=== PATIENT | female | born 1965 | race African-American/Black ===

== ENCOUNTER 2020-04-07 16:19 | Emergency (ER) | payer OTHER ==
[~2020-04-07] VITALS: Ht 162.6 cm; Wt 83.9 kg
[~2020-04-07 16:19] MED LIST: BENADRYL25 MG PO; CELEXA40 MG PO; DESYREL100 MG PO; VISTARIL 25 MG25 M1 PO
[2020-04-07 17:20] LABS: BE(vivo) -1.6 mmol/L (-2 to +3); HCO3 22.4 mmol/L (22.0-26.0); PCO2 35.6 mmHg (35.0-45.0); PO2 57.3 mmHg (80.0-100.0); pH 7.417 (7.360-7.450); sO2 90.5 % (92.0-98.0)
[2020-04-07 17:57] LABS: HEMATOCRIT 38.1 % (37.0-47.0); HEMOGLOBIN 12.8 gm/dL (12.0-15.0); MCH 31.2 pg (26.0-34.0); MCHC 33.6 g/dL (28.0-37.0); MCV 92.9 fL (80.0-100.0); PLATELET COUNT 239 thou/uL (150-400); RDW 13.8 % (10.5-14.5)
[2020-04-07 18:12] LABS: CALCIUM 8.9 mg/dL (8.5-10.1); CREATININE 1.2 mg/dL (0.6-1.0); POTASSIUM 3.9 mmol/L (3.5-5.1)
[2020-04-07 18:17] LABS: ALBUMIN 2.7 g/dL (3.4-5.0); DIRECT BILIRUBIN 0.3 mg/dL (<0.1-0.2); TOTAL BILIRUBIN 0.4 mg/dL (0.2-1.0); TOTAL PROTEIN 7.2 g/dL (6.4-8.2)
[2020-04-07 18:24] LABS: ABSOLUTE NEUTROPHILS 7.8 thou/uL (1.4-8.2)
[2020-04-07] MEDS ORDERED: ZPAK PO (20:57)
[2020-04-07 21:35] VITALS: BP 129/78
== END 2020-04-07 21:30 | disposition home or self-care (01) ==
LOC: ER 16:19
PROVIDERS: Emergency Medicine
DX: U07.1 COVID-19 (principal); R09.02 Hypoxemia; E87.2 Acidosis; I10 Essential (primary) hypertension; F17.210 Nicotine dependence, cigarettes, uncomplicated; Z79.899 Other long term (current) drug therapy; Z88.0 Allergy status to penicillin; Z88.8 Allergy status to other drugs, medicaments and biological substances; Z91.030 Bee allergy status

== ENCOUNTER 2020-08-25 18:24 | Emergency (ER) | payer OTHER ==
[~2020-08-25] VITALS: Ht 162.6 cm; Wt 105.7 kg
[~2020-08-25 18:24] MED LIST changes: +ZPAK PO
[2020-08-25] MEDS ORDERED: FLAGYL500 M1 PO (18:33)
[2020-08-25] MEDS ORDERED: ABILIFY20 MG PO (18:33)
[2020-08-25] MEDS ORDERED: FLEXERIL PO (18:33)
[2020-08-25] MEDS ORDERED: KLOR-CON 1010 MEQ PO (18:34)
[2020-08-25 18:35] VITALS: BP 142/82
== END 2020-08-25 18:39 ==
LOC: ER 18:24
DX: S60.812A Abrasion of left wrist, initial encounter (principal); T14.91XA Suicide attempt, initial encounter; I10 Essential (primary) hypertension; Z79.899 Other long term (current) drug therapy; Z88.0 Allergy status to penicillin; Z88.8 Allergy status to other drugs, medicaments and biological substances; Z91.030 Bee allergy status; X78.9XXA Intentional self-harm by unspecified sharp object, initial encounter; Y93.89 Activity, other specified; Y92.89 Other specified places as the place of occurrence of the external cause; Y99.8 Other external cause status

== ENCOUNTER 2020-12-06 08:27 | Emergency (ER) | payer OTHER ==
[~2020-12-06] VITALS: Ht 162.6 cm; Wt 105.7 kg
--- NOTE | ~2020-12-06 | EMS ---
[address] [address] EMS Patient Care Report Name: KORTNEY WORRELL Room #: REG NELA Greene#: [id number] Admission: 12/06/20 Attend Phys: Discharge: Date of : 63 Report #: [id number] THIS REPORT FOR: //name// Report Transmitted: 12/06/2020 08:54 EMS Care Summary [place], [place]/[facility] Incident [id number] @ 12/06/2020 07:[address] [address] [facility] Patient KORTNEY WORRELL Female, 55 Years 1965 Patient Address [address] [place], [place] [id number] Patient History Hypertension (HTN),Fibromyalgia,Gastro-Esophageal Reflux Disease (GERD),Anxiety,Post Traumatic Stress Disorder (PTSD), Chief Complaint L hip pain Disposition Transported No Lights/[place] Reason Traumatic Injury Transported To [facility] Narrative pt found seated on bedside, a&o, NAD. she states she slipped on a rug, getting out of the shower, and fell. pt c/o L hip pain. she was able to get herself up and walk to her room. staff wants pt eval at [facility]. pt denies LOC, states she hit her head "a little bit" but has no pain. pt seats self on cot. transport w/o incident. [address] [address] EMS Patient Care Report Name: KORTNEY WORRELL Room #: REG [facility]..#: [id number] Admission: 12/06/20 Attend Phys: Discharge: Date of : 63 Report #: [id number] Initial Vitals @08:13P: 83,R: 18,BP: 129/86,Pain: 8/10,GCS: 15,SpO2: 95,Revised Trauma: 12, Assessments @08:07MENTAL:No Abnormalities,SKIN:No Abnormalities,HEENT:LUNG SOUNDS:ABDOMEN:PELVIS//GI:Pelvis Other,EXTREMITIES:PULSE:Radial: 2+ Normal,NEURO: Impression Injury of Hip Procedures @08:07ALS AssessmentResponse: Unchanged@08:09StretcherResponse: Unchanged Timeline 07:54,Call Received 07:54,Dispatch Notified 07:56,Dispatched 07:57,En Route 08:03,On Scene 08:07,At Patient 08:07,ALS Assessment,Response: Unchanged 08:09,Stretcher,Response: Unchanged 08:13,BP: 129/86 M,PULSE: 83,RR: 18 R,SPO2: 95 Ox,ETCO2: ,BG: ,PAIN: 8,GCS: 15, 08:15,Depart Scene 08:23,At Destination 08:41,Call Closed Disclaimer v1.1 Copyright 2020 [employer] This EMS Care Summary contains data elements from the applicable legal record (which may be displayed differently). It is designed to provide pertinent information for the following purposes: continuity of care, clinical quality, and state data reporting. The complete legal record is available to ED staff and administrators of the receiving hospital in [facility]'s Patient Tracker. All data is provided "as is."
[~2020-12-06 08:27] MED LIST changes: +ABILIFY20 MG PO; +FLAGYL500 M1 PO; +FLEXERIL PO; +KLOR-CON 1010 MEQ PO
[2020-12-06 09:20] VITALS: BP 124/76
== END 2020-12-06 12:17 | disposition home or self-care (01) ==
LOC: ER 08:27
DX: S70.02XA Contusion of left hip, initial encounter (principal); M79.605 Pain in left leg; I10 Essential (primary) hypertension; F31.9 Bipolar disorder, unspecified; F41.1 Generalized anxiety disorder; Z79.899 Other long term (current) drug therapy; Z88.0 Allergy status to penicillin; Z91.030 Bee allergy status; W19.XXXA Unspecified fall, initial encounter; Y93.89 Activity, other specified; Y92.89 Other specified places as the place of occurrence of the external cause; Y99.8 Other external cause status

== ENCOUNTER 2021-03-01 17:29 | Inpatient (IN) | payer OTHER ==
[~2021-03-01] VITALS: Ht 167.6 cm; Wt 112.0 kg
--- NOTE | ~2021-03-01 | HC ---
[facility] [place] [address] CONSULTATION Name: KORTNEY WORRELL Room #: 463-P ADM IN M.R.#: [id number] Admission: 03/01/21 Attend Phys: Rasta Olguin Discharge: Date of : 63 Report #: [id number] THIS REPORT FOR: cc: Mason James MD, Dennis R MD Deardorff, Valerie A. MD ~ DATE OF SERVICE: 03/16/2021 REASON FOR CONSULTATION: Right ankle fracture. HISTORY OF PRESENT ILLNESS: The patient is a 55-year-old female who reportedly noted no specific injury to her right ankle, noticed it after she was out of restraints approximately four to five days ago, complains of right ankle pain. Denies any other significant extremity issues. PAST MEDICAL HISTORY: Significant for urinary tract issues per the patient, bipolar disorder, fibromyalgia, PTSD, generalized anxiety disorder, hepatitis C, diabetes type 2, hypertension, vitamin D deficiency. PAST SURGICAL HISTORY: She is unable to provide. SOCIAL HISTORY: She is at a prison. Ambulates without any assistive devices. Smokes. ALLERGIES: HALDOL, PENICILLIN, THORAZINE, CHLORPROMAZINE, FLUPHENAZINE. MEDICATIONS: Reported home medications include cyclobenzaprine, benztropine, buspirone, chlorpromazine, cyclobenzaprine, divalproex, famotidine, furosemide, lisinopril, melatonin, metformin, metoprolol, potassium chloride, albuterol, tramadol. REVIEW OF SYSTEMS: MUSCULOSKELETAL: She reports some mild left shoulder pain. NEUROLOGIC: She denies numbness or tingling. LABORATORY DATA: Laboratory studies done on 03/10/2021 show white blood cell count 13, hemoglobin 9.4, hematocrit 27.6, platelet count 385. Chemistry on 03/12/2021 is grossly normal. PHYSICAL EXAMINATION: GENERAL: The patient is awake, alert and oriented. She interacts appropriately. She converses well. She is a well-developed, well-nourished female in no acute distress. VITAL SIGNS: Most recent vital signs show temperature of 36.7, heart rate is 93, respiratory rate 18, blood pressure 135/78, pulse oximetry 96% on room air. EXTREMITIES: Examination of her right lower extremity, she has a moderately [facility] [address] [place] [address] CONSULTATION Name: KORTNEY WORRELL Room #: 463-[facility] IN M.R.#: [id number] Admission: 03/01/21 Attend Phys: Rasta Olguin Discharge: Date of : 63 Report #: [id number] edematous ankle and dorsal foot. She has brisk capillary refill. She minimally wiggles her toes. She has tenderness to palpation to the medial and lateral malleoli. No other foot tenderness. She does have some tenderness at her proximal leg. No other tenderness or pain with range of motion of the right lower extremity. Bilateral upper extremities are grossly neurovascularly intact with motor, sensory, and strength grossly intact. She moves them without significant difficulty. RADIOGRAPHS: AP, lateral and mortise view of the right ankle shows some chronic calcifications medially and laterally with an oblique distal fibula fracture with lateral translation of the talus. IMPRESSION AND PLAN: A 55-year-old female with right lateral malleolus fracture and translation of the talus laterally. Recommend nonweightbearing in a CAM walker and recommend she see my partner, Dr. Hao Khan this week in office at [facility] at the [facility] location, formally [facility] for most likely surgical discussion and surgical treatment. I will discuss this with the patient. I have discussed this with Dr. Khan. Thank you very much for allowing me to participate in the care of this patient. By: [phone] Leatha Rolon MD /nt
[2021-03-01 17:29] VITALS: BP 85/42
[2021-03-01 17:55] LABS: HEMATOCRIT 32.8 % (37.0-47.0); HEMOGLOBIN 10.7 gm/dL (12.0-15.0); MCH 31.4 pg (26.0-34.0); MCHC 32.6 g/dL (28.0-37.0); MCV 96.4 fL (80.0-100.0); PLATELET COUNT 161 thou/uL (150-400); RDW 14.8 % (10.5-14.5); WBC 15.2 thou/uL (4.0-11.0)
[2021-03-01 18:00] LABS: CALCIUM 9.3 mg/dL (8.5-10.1); CREATININE 3.3 mg/dL (0.6-1.0); POTASSIUM 4.9 mmol/L (3.5-5.1)
[2021-03-01 18:06] LABS: ALBUMIN 2.6 g/dL (3.4-5.0); APTT 34.8 Seconds (24.5-32.8); INR 1.13; PROTIME 12.2 Seconds (10.5-12.1); TOTAL BILIRUBIN 0.3 mg/dL (0.2-1.0); TOTAL PROTEIN 6.9 g/dL (6.4-8.2)
[2021-03-01] MEDS ORDERED: BENZTROPINE MES1 MG PO (18:26)
[2021-03-01] MEDS ORDERED: BUSPIRONE HCL10 MG PO ×2 (18:26)
[2021-03-01] MEDS ORDERED: FLEXERIL PO (18:27)
[2021-03-01] MEDS ORDERED: CHLORPROMAZINE50 M2 PO (18:27)
[2021-03-01] MEDS ORDERED: DEPAKOTE ER500 M1 PO (18:27)
[2021-03-01] MEDS ORDERED: DIVALPROEX SOD500 MG PO (18:28)
[2021-03-01] MEDS ORDERED: FUROSEMIDE 20 M20 MG PO (18:28)
[2021-03-01] MEDS ORDERED: ACID CONTROLLER20 MG PO (18:28)
[2021-03-01] MEDS ORDERED: LISINOPRIL10 MG PO (18:29)
[2021-03-01] MEDS ORDERED: FUROSEMIDE 40 M40 MG PO (18:29)
[2021-03-01] MEDS ORDERED: MELATONIN10 M3 PO (18:29)
[2021-03-01] MEDS ORDERED: MIRALAX17 G1 PO (18:30)
[2021-03-01] MEDS ORDERED: LOPRESSOR50 MG PO (18:30)
[2021-03-01] MEDS ORDERED: METFORMIN HCL500 M3 PO (18:30)
[2021-03-01] MEDS ORDERED: TRAMADOL 50 MG50 MG PO (18:31)
[2021-03-01] MEDS ORDERED: KLOR-CON M2020 MEQ PO (18:31)
[2021-03-01] MEDS ORDERED: PROAIR HFA8.5 GM INH (18:31)
[2021-03-01] MEDS ORDERED: STOOL SOFTENER100 M1 PO (18:33)
[2021-03-01] MEDS ORDERED: LIDOCAINE TOP (18:33)
[2021-03-01] MEDS ORDERED: TETRACAINE TOP (18:33)
[2021-03-01 18:54] LABS: ABSOLUTE NEUTROPHILS 8.5 thou/uL (1.4-8.2)
[2021-03-01 20:53] VITALS: BP 109/60
[2021-03-01 21:15] VITALS: BP 129/79
[2021-03-01 21:32] LABS: URINE BILIRUBIN NEGATIVE (Negative); URINE BLOOD 3+ (Negative); URINE CLARITY SL CLOUDY; URINE COLOR YELLOW; URINE GLUCOSE-RANDOM* NEGATIVE (Negative); URINE KETONES NEGATIVE (Negative); URINE LEUKOCYTES-REFLEX 3+ (Negative); URINE NITRITE-REFLEX NEGATIVE (Negative); URINE PROTEIN (DIPSTICK) NEGATIVE (Negative); URINE SPECIFIC GRAVITY 1.015 (1.005-1.035); URINE UROBILINOGEN 0.2 E.U./dl (0.2-1.0)
[2021-03-01 21:40] LABS: BACTERIA-REFLEX >30 Many /HPF (None Seen); CASTS None Seen /LPF (None Seen); SQUAMOUS 4-10 Moderate /LPF (0-3); URINE RBC >20 Many /HPF (NONE SEEN); URINE WBC-REFLEX >25 Many /HPF (0-5)
[2021-03-01 21:41] LABS: CRYSTALS None Seen /LPF (None Seen)
[2021-03-02] VITALS (17 sets, daily range): BP systolic 96–191; BP diastolic 45–112
--- NOTE | 2021-03-02 02:57 | NUR ---
PT ARRIVED FROM ER @2114. UNABLE TO COMPREHEND DUE TO MEDICAL HX. ADMISSION DONE BY PAPERWORK FROM [facility]. PT HAS BEEN RESTLESS, IMPULSIVE AND AGITATED UPON ARRIVAL. PAYROLL ACCOUNTING MANAGER MIGUEL AWARE AND STOPED BY TO SEE PT. IV ATIVAN, SL ZYPREXA GIVEN AND PT STILL RESTLESS. PT IS VERY WEAK AND UNABLE TO WALK. SCRATCHED RN AND OTHER MACHINE FEEDER FLOORPERSON WITH HER SHARP FINGER NAILS. PT TRYING TO GET OFF FROM BED, THIS NURSE INFORMED PT TO LAY BACK IN BED. PT STARTED TO KICK AND HIT AT STAFF. SECURITY CALLED. HOUSE SUP AWARE. IM GEODON GIVEN. WILL CONT TO MONITOR. BRIEF ON FOR INCONTINENCE. PT HAD A BM SMEARED ON BED. 4 SIDE RAILS UP FOR SAFETY. FALL PREC IN PLACE. PT ON TELE AND WILL CONT WITH POC.
[2021-03-02 05:43] LABS: HEMATOCRIT 30.3 % (37.0-47.0); MCH 32.4 pg (26.0-34.0); MCHC 33.1 g/dL (28.0-37.0); MCV 98.1 fL (80.0-100.0); RBC 3.09 mil/uL (4.20-5.00); RDW 14.9 % (10.5-14.5); WBC 16.1 thou/uL (4.0-11.0)
[2021-03-02 05:54] LABS: CALCIUM 8.5 mg/dL (8.5-10.1); POTASSIUM 5.4 mmol/L (3.5-5.1)
[2021-03-02 05:59] LABS: CREATININE 1.8 mg/dL (0.6-1.0)
--- NOTE | 2021-03-02 15:03 | NUR ---
1200 - Patient got out of bed on 0.5 precedex. She was mocking instructions and was not cooperating with this RN's directions to keep her safe. Patient attempted to pull at her lines and was not redirectable. Once out of the bed, the patient wanted to get back in the bed and was helped back. Precedex dose increased according to protocol and no further events have transpired as of the writing of this note.
--- NOTE | 2021-03-02 15:37 | EKG ---
[address] [place] [address] ELECTROCARDIOGRAM REPORT Name: KORTNEY WORRELL Room #: [facility]- ADM IN M.R.#: [id number] Admission: 03/01/21 Attend Phys: Darell Figueroa MD Discharge: Date of : 63 Report #: [id number] [facility] ED Test Date: 2021-03-01 Test Time: 17:37:12 Pat Name: KORTNEY WORRELL Department: Room: [facility] Gender: F Bag Presser: GINA : 1965 Requested By: Darell Figueroa Order Number: [id number] MD: Johnathon Williamson Measurements Intervals [place] Rate: 88 P: 39 AR: 156 QRS: -17 QRSD: 96 T: 52 QT: 380 QTc: 460 Interpretive Statements Sinus rhythm Inferior infarct, old Baseline wander in lead(s) V4,V6 No previous ECG available for comparison Electronically Signed On 03-02-2021 15:36:57 CDT by Johnathon Williamson [email or web address] <ELECTRONICALLY SIGNED> By: Johnathon Williamson MD, [facility] 03/02/21 1536 36 36 Johnathon Williamson MD, FAC /EPI
--- NOTE | 2021-03-02 16:42 | NUR ---
Chart review, discussed during los with hospitalist and spoke with romeo august. She lives [facility] the [facility]. Has legal guardian. Has assist with adl's and medication. Meals provided. Will cont following as needed for dc needs.
[2021-03-03] VITALS (24 sets, daily range): BP systolic 102–180; BP diastolic 64–97
--- NOTE | 2021-03-03 05:02 | NUR ---
Pt no progressing towards goal. Pt became very agitated, combative and managed to get out of bed. Five and two security personnel assisted pt back in bed safely. Precedex infusing continued and prn zyprexa given with partial relief. Increased bp treated (see chart), other vss stayed within normal limits. Pt is incontinent of urine and still refuses cole insertion.
[2021-03-03 05:42] LABS: HEMATOCRIT 31.1 % (37.0-47.0); HEMOGLOBIN 10.5 gm/dL (12.0-15.0); MCHC 33.9 g/dL (28.0-37.0); MCV 97.1 fL (80.0-100.0); RBC 3.2 mil/uL (4.20-5.00); RDW 14.9 % (10.5-14.5); WBC 13.3 thou/uL (4.0-11.0)
[2021-03-03 05:47] LABS: % SATURATION 19 % (20-39); IRON 36 ug/dL (50-170); TIBC 194 ug/dL (250-450)
--- NOTE | 2021-03-03 11:20 | NUR ---
Pt remains in the ICU. Case discussed with the care team. Shon consulted. Clinical updated faxed to Portillo STACY at [facility]. They are holding her bed.
[2021-03-03 12:59] LABS: CREATININE 1.1 mg/dL (0.6-1.0); MAGNESIUM 1.5 mg/dL (1.8-2.4); POTASSIUM 4.7 mmol/L (3.5-5.1)
--- NOTE | 2021-03-03 13:15 | NUR ---
DR. MOORE IN. FEW SIPS OF WATER EARLIER W/O PROBLEMS, B/4 ZYPREXA GIVEN.--VW
[2021-03-04] VITALS (24 sets, daily range): BP systolic 106–185; BP diastolic 54–160
--- NOTE | 2021-03-04 18:42 | NUR ---
PATIENT SLOWLY PROGRESSING EVIDENCED BY DECREASED AGGRESIVE BEHAVIOR.
[2021-03-05] VITALS (24 sets, daily range): BP systolic 123–169; BP diastolic 70–107
[2021-03-05 04:51] LABS: HEMATOCRIT 31.2 % (37.0-47.0); HEMOGLOBIN 10.4 gm/dL (12.0-15.0); MCH 31.8 pg (26.0-34.0); MCHC 33.4 g/dL (28.0-37.0); MCV 95.2 fL (80.0-100.0); RBC 3.27 mil/uL (4.20-5.00); WBC 12.6 thou/uL (4.0-11.0)
[2021-03-05 05:35] LABS: CALCIUM 8.5 mg/dL (8.5-10.1); CREATININE 0.9 mg/dL (0.6-1.0); MAGNESIUM 1.3 mg/dL (1.8-2.4); POTASSIUM 4.1 mmol/L (3.5-5.1)
--- NOTE | 2021-03-05 10:17 | NUR ---
WOKE PT EARLIER TO TAKE PILL,OFFER BREAKFAST. TOOK A FEW SIPS ONLY,TOOK MED W/O INCIDENT.NOT RESPONDING VERBALLY TO ?'S ASKED.--VW
--- NOTE | 2021-03-05 17:34 | NUR ---
Tenative plan for dc today. Sp with Huy at [facility] who reports they do not have staff to accept patient today. Faxed updated information. Huy reports can accept patient at 10;00 03/06/21. They plan wc van transport. Dr Gregory reports she sp with guardian who is agreeable to dc at any time to return to [facility]. Updated phys and RN.
[2021-03-06] VITALS (23 sets, daily range): BP systolic 121–173; BP diastolic 69–101
--- NOTE | 2021-03-06 06:20 | NUR ---
PT REMAINED IN RESTRAINTS OVERNIGHT. FOR THE MAJORITY OF SHIFT PT PLEASANT AND COOPERATIVE. PT COMPLAINED OF INCREASED ABDOMINAL PAIN SO OBTAINED A KUB. SEE RADIOLOGY REPORT FOR RESULTS.
[2021-03-06 08:41] LABS: HEMATOCRIT 30.6 % (37.0-47.0); HEMOGLOBIN 10.2 gm/dL (12.0-15.0); MCH 32.1 pg (26.0-34.0); MCHC 33.4 g/dL (28.0-37.0); MCV 96.2 fL (80.0-100.0); RBC 3.18 mil/uL (4.20-5.00); RDW 14.9 % (10.5-14.5); WBC 11.8 thou/uL (4.0-11.0)
[2021-03-06 08:57] LABS: CALCIUM 8.7 mg/dL (8.5-10.1); CREATININE 0.8 mg/dL (0.6-1.0); MAGNESIUM 1.6 mg/dL (1.8-2.4); POTASSIUM 3.6 mmol/L (3.5-5.1)
[2021-03-06] MEDS ORDERED: FLAGYL500 M1 PO (09:04)
[2021-03-06] MEDS ORDERED: LEVOFLOXACIN750 MG PO (09:04)
--- NOTE | 2021-03-06 10:19 | NUR ---
PT CALM AND COOPERATIVE THIS AM. PT COMPLAINING OF PAIN IN ABD REGION. PT SLEEPING SOUNDLY. RN TRIED CALLING SARANYA AT 1019. PEST CONTROLLER[TIONIST STATED THE NURSE WAS IN A MEETING RIGHT NOW AND TO CALL BACK IN 10-15 MINUTES. RN WILL CALL BACK THEN TO GIVE NURSE REPORT. PT RIDE WAS SCHEDULED FOR 1000, NO RIDE HAS SHOWN YET. PT HOLGUIN WAS REMOVED AT 1000. FACILITY STATED THEY WILL MONITOR HER URINE TRIALS FOR POST CATH URINATION.
--- NOTE | 2021-03-06 11:33 | NUR ---
DR MCMILLAN CAME TO SEE PATIENT BEFORE SHE WAS DISCHARGED. PT COMPLAINING OF ABD PAIN. DR MCMILLAN DC THE DISCHARGE ORDER AND ORDERED A CT AND SUPPOSITORY. RN GAVE SUPPOSITORY. PT HASNT HAD BOWEL MVMT FOR 2 DAYS. WILL CONTINUE TO MONITOR.
--- NOTE | 2021-03-06 12:28 | NUR ---
Tenative dc to [facility] today. Faxed ordrers sp with admissions, planned transport wc van for 10:00. Dr Figueroa met with patient this am. Cancelled dc. Patient with small ileus, and no BM for a few days. Left message with Sosa. Transport had already arrive and Rn sent away. [facility] IF dc over weekend. Call [facility] [phone]. Fax orders to [phone]. Chart is copiied. Request trasport from [facility]. If they cannot trasport call [facility] [phone]
[2021-03-07] VITALS (24 sets, daily range): BP systolic 89–161; BP diastolic 55–126
[2021-03-07 03:50] LABS: HEMOGLOBIN 9.4 gm/dL (12.0-15.0); MCH 31.7 pg (26.0-34.0); MCHC 33.6 g/dL (28.0-37.0); MCV 94.5 fL (80.0-100.0); RBC 2.96 mil/uL (4.20-5.00); RDW 15.2 % (10.5-14.5); WBC 11.4 thou/uL (4.0-11.0)
[2021-03-07 04:12] LABS: CALCIUM 8.8 mg/dL (8.5-10.1); CREATININE 0.9 mg/dL (0.6-1.0); MAGNESIUM 1.7 mg/dL (1.8-2.4)
--- NOTE | 2021-03-07 13:03 | NUR ---
PT MESSAGED DR AMEZQUITA ABOUT PT HR BEING IN THE 130S. PT LAYING IN BED, SOMEWHAT ANXIOUS AND HAVING A LOT OF PAIN. 9/10 ABD PAIN. PHARMACY STATED I CANNOT GIVE THE TORDOL D/T PT GETTING CONTRAST YESTERDAY AFTERNOON FOR CT. RN GAVE ATIVAN TO HELP CALM PT DOWN. WILL CONTINUE TO MONITOR.
--- NOTE | 2021-03-07 16:10 | NUR ---
RN TALKED TO DR AMEZQUITA VIA TELEPHONE ABOUT PT HR INCREASING TO 160 AROUND 1400 FOR SHORT PERIOD OF TIME. INTITALLY MESSAGED HIM FOR HR IN THE 130S. PT HR IN 140S WHEN CONTACTED THE SECOND TIME. ALIRIO STATED "SHE IS WITHDRAWLING FROM PRECEDEX" AND EXPLAINED HER HR WILL BE HIGH. GAVE PT PRN OLANZIPINE FOR ANXIETY AND ONE TIME DOSE OF MORPHINE FOR SEVERE ABD PAIN. PATIENT CAN RECEIVE PRN TORDOL FOR PAIN AROUND 1900 DUE TO CONTRAST GIVEN TO PATIENT YESTERDAY AFTERNOON. ALIRIO OK WITH TRANSFERING PATIENT STILL TO [facility] TELE UNIT.
[2021-03-08] VITALS (17 sets, daily range): BP systolic 125–167; BP diastolic 67–103
--- NOTE | 2021-03-08 08:22 | NUR ---
1939-SPOKE TO NICHOLE MELLO, OBTAINED ORDER FOR IVP LOPRESSOR x1. HR DROPPED FROM 140-150 TO LOW 100'S. BUT PT VERY RESTLESS AND IMPULSIVE, CLIMBING OUT OF BED AND HR QUICKLY BACK TO 130'S. 2199-OBTAINED ORDER FOR ONE TIME DOSE FENTANYL, PT C/O ABD PAIN, STILL VERY RESTLESS. PT HAD PULLED OUT IV, NEW LINE STARTED. 0000-LOW UOP, RESTLESS, DIFFICULT TO REORIENT. OBTAINED ORDER FOR RESTRAINTS AND IVF. PRN ZYPREXA, ATIVAN, AND TORADOL UTILIZED OVERNIGHT TO LITTLE EFFECT. CONTINUED TO HAVE HR 130'S, BP INCREASING OVERNIGHT, PT CONFUSED/FORGETFUL. NO FURTHER CONCERNS.
--- NOTE | 2021-03-08 15:26 | NUR ---
DURING THE DAY PT HAS BEEN TALKING TO HERSELF. PT SEEMS TO BE HAVING AUDITORY AND VISUAL HALLUCINATIONS. PT HAS BEEN OFF PRECEDEX FOR OVER 24 HRS. PT IS RECEIVING PRN OLANZINE AND ATIVAN FOR AGITATION AND TORDOL FOR PAIN. PT STARTED ON IV METOPROLOL FOR PT HR BEING IN THE 130-140S. CURRENT HR 116. PT IS IN RESTRAINTS DUE TO BEING CONFUSED AND TRYING TO GET OUT OF BED. PT BELIEVES SHE IS AT [facility]. PT IS REFUSING TO EAT MEALS BUT IS TAKING MEDS WITH A SIP OF WATER. PT IS COOPERATIVE BUT RESTLESS ON MY SHIFT. PT HAS MEDSURG/TELE TRANSFER ORDERS. WILL CONTINUE TO MONITOR.
[2021-03-09 00:01] VITALS: BP 161/96
[2021-03-09 04:32] LABS: ALBUMIN 2.3 g/dL (3.4-5.0); CALCIUM 8.7 mg/dL (8.5-10.1); CREATININE 0.9 mg/dL (0.6-1.0); PHOSPHORUS 3.6 mg/dL (2.5-4.9); POTASSIUM 3.5 mmol/L (3.5-5.1)
[2021-03-09 08:01] VITALS: BP 181/96
[2021-03-09 08:15] VITALS: BP 192/105
[2021-03-09 09:46] VITALS: BP 92/69
[2021-03-09 10:08] VITALS: BP 147/90
--- NOTE | 2021-03-09 10:30 | NUR ---
Discussed during los with the hospitalist. Passed on that she will need to be out of restraints for at least 24 hours to return to [facility]. Had bm. possible able to move out of the icu.
--- NOTE | 2021-03-09 10:55 | NUR ---
PT CONFUSED, DANGLE HER LEGS OUT OF BED. PT WANTS TO GO OUT TO SMOKE CIGARETTE. PT ABLE TO VERBALIZE HER NAME AND SAYS SHE IS IN [facility] WHEN ASKED WHERE SHE IS. PT ON RESTRAINTS. PT WAS STARTED ON IVF THIS AM. PT HAS VERY LOW APPETITE. PT HAS HOLGUIN CATHETER IN PLACE. PT WAS TRANSFERRED TO [address] [place] [address] BY FREIDA ÁLVAREZ AND FREIDA MADDOX.REPORT GIVEN TO FREIDA BAIRD. RESTRAINTS SHEET WAS TAKEN TO [facility] AND FREIDA BAIRD WAS MADE AWARE ABOUT IT.
--- NOTE | 2021-03-09 20:34 | NUR ---
ASSUMED CARE TO PT UPON ARRIVAL ON THE FLOOR BY 10:30, ASSESSMENT DONE , SAFE ENVIRONMENT PROVIDED, MEDS GIVEN SCHEDULED & PRN, RESTLESS, 4 PTS RETRAINTS ASSESSED Q 2 NO COMPLICATIONS NOTED. HOURLY ROUND, REFUSED ALL MEALS. CONT POC.
[2021-03-09 23:00] VITALS: BP 144/96
[2021-03-10 01:41] LABS: URINE BILIRUBIN 1+ (Negative); URINE BLOOD 3+ (Negative); URINE CLARITY CLEAR; URINE COLOR YELLOW; URINE GLUCOSE-RANDOM* NEGATIVE (Negative); URINE KETONES 1+ (Negative); URINE LEUKOCYTES NEGATIVE (Negative); URINE NITRITE NEGATIVE (Negative); URINE PROTEIN (DIPSTICK) TRACE (Negative); URINE SPECIFIC GRAVITY >= 1.030 (1.005-1.035); URINE UROBILINOGEN 0.2 E.U./dl (0.2-1.0)
[2021-03-10 01:51] LABS: ICTOTEST (BILI CONFIRMATORY) Positive (Negative); SQUAMOUS 0-3 Few /LPF (0-3); URINE WBC 6-15 Few /HPF (NONE SEEN)
[2021-03-10 01:52] LABS: CASTS None Seen /LPF (None Seen); CRYSTALS None Seen /LPF (None Seen); MUCUS 4-6 Moderate strn/LPF (None Seen); YEAST Present (None Seen)
[2021-03-10 04:30] LABS: ALBUMIN 2.1 g/dL (3.4-5.0); CALCIUM 8.4 mg/dL (8.5-10.1); CREATININE 0.7 mg/dL (0.6-1.0); PHOSPHORUS 3.9 mg/dL (2.6-4.7)
[2021-03-10 04:34] LABS: POTASSIUM 4.5 mmol/L (3.5-5.1)
[2021-03-10 04:40] VITALS: BP 146/63
--- NOTE | 2021-03-10 05:59 | NUR ---
ASSUMED CARE OF PT AT 1900. PT IS DISORIENTED AND THRASHING IN BED. D/T UTI, TOXIC ENCEPHALOPATHY, AND PSYCH DISORDERS PT CONTINUALLY ATTEMPTS TO GET OUT OF BED, THROWING LEGS OVER THE SIDE AND MUMBLING. MD MOORE ORDERED 4 PT RESTRAINTS FOR THIS PT TODAY FOR NONVIOLENT RESTRAINT TO PROTECT THE PT. TALKED TO AG EQUIPMENT FIELD SERVICE TECHNICIAN TO VERIFY ORDERS, NO SITTER IS NEEDED. DOCUMENTED ON RESTRAINTS Q2: ROUNDING DONE EVERY HOUR, 2 FINGERS GIVE BETWEEN SKIN, NO SKIN BREAKDOWN, NO VERBALIZED CONCERNS. PT IS ABLE TO MUMBLE BUT IS APHASIC AND QUIET. ATTEMPTED TO TRIAL LOWER RESTRAINTS OFF, BUT PT WAS NOT ABLE TO RESIST THROWING LEGS OVER SIDE. RE APPLIED RESTRAINT FOR NOW, DON'T KNOW IF IT WILL BE POSSIBLE TO USE ONLY LOWERS, PT IS NOW ONLY ON ATIVAN. PT WAS ABLE TO TAKE MEDS CRUSHED IN APPLEJUICE AND WAS ABLE TO SLEEP AT 2. WILL CONTINUE TO MONITOR AND UPDATE DAY SHIFT RN.
[2021-03-10 07:56] VITALS: BP 149/96
[2021-03-10 14:09] LABS: HEMATOCRIT 27.6 % (37.0-47.0); HEMOGLOBIN 9.4 gm/dL (12.0-15.0); MCH 32.7 pg (26.0-34.0); MCHC 34.1 g/dL (28.0-37.0); MCV 95.9 fL (80.0-100.0); RBC 2.88 mil/uL (4.20-5.00)
[2021-03-10 15:30] VITALS: BP 142/86
--- NOTE | 2021-03-10 16:52 | NUR ---
PLAN IS TO PT TO RETURN TO [facility] ONCE OUT OF RESTRAINST. CM FOLLOWING REGARDING DC PLANNING.
--- NOTE | 2021-03-10 18:06 | NUR ---
ASSUMED CARE TO PT AT SHIFT CHANGE, A/O X [address] AND PERSON, BUT STILL CONFUSED, VERY DROWSY, TAKES PILLS CRUSHED IN APPLE SAUCE, VSS, NO C/O PAIN, ALL MEDS GIVEN PER SCHEDULE, LABS REVIEWED, PT REMAINED SAFE, AFEBRILE. 4 PTS RESTRAINTS OFF EARLY THIS AM, WITH 2 UPPER IN PALCE, NO RENEWAL PER NURSING JUDGEMENT PT REMAINED CALM , SLEEPING ALL DAY AND FOLLOWED COMMANDS IN THE LITTLE TIME AWAKEN. FLUIDS AND FOOD OFFERED, ORAL CARE PROVIDED, URINARY CATH PATENT AND GOOD DIURESIS, BUT POOR ORAL INTAKE. NO NEW CONCERNS. CONTINUE TO MONITOR PT FOR CHANGES. POC TO BE CONT'D.
[2021-03-10 19:47] VITALS: BP 125/88
[2021-03-11] VITALS (7 sets, daily range): BP systolic 128–153; BP diastolic 76–92
[2021-03-11 06:34] LABS: ALBUMIN 2.2 g/dL (3.4-5.0); CALCIUM 8.7 mg/dL (8.5-10.1); CREATININE 0.7 mg/dL (0.6-1.0); PHOSPHORUS 4.4 mg/dL (2.5-4.9); POTASSIUM 3.6 mmol/L (3.5-5.1)
--- NOTE | 2021-03-11 07:21 | NUR ---
ASSUMED CARE OF PT AT 1900. DURING THE DAY SHIFT PATIENT CONTINUED TO BE EXTREMELY DROWSY. SHE DOES NOT STRUGGLE ANYMORE, BUT STILL OPENS EYES, AND RESPONDS TO PROMPTS. BECAUSE OF THIS RESTRAINTS WERE DISCONTINUED EARLY IN THE DAY. PT VITALS REMAIN STABLE INCLUDING OXYGEN ON ROOM AIR. PT LOCALIZES TO TOUCH AND RESPONDS TO HER NAME. AROUND MIDNIGHT, WOKE UP AND WAS MUCH MORE ORIENTED THAN I HAD SEEN. SPOKE CLEARLY WITH NO SLUR, RESPONDED APPROPRIATELY, KNEW WHERE SHE WAS, AND ASKED QUESTIONS. PT CONTINUED TO MAINTAIN THAT SHE IS TIRED BUT OK. CT OF THE HEAD WAS TAKEN IN AM SHOWING SOME ATROPHY. RESTED QUIETLY IN BED THROUGHOUT SHIFT. UNABLE TO TOLERATE PO MEDS, WILL UPDATE DAY SHIFT RN AND POSSIBLY REASSESS POC MOVING FORWARD.
--- NOTE | 2021-03-11 14:18 | NUR ---
Assumed pt care at 7am.Pt in bed sleeping at alltimes. All po meds on hold for now per Dr Olguin's order.Eeg done today .See report in pci.Dr Pleitez here, additional order noted. Ativan ivp given per pt request. Pt rr per kier boiler was 30 at noon,Dr Gregory wanted it recheck. When rn observed pt respiration rate it was 16. Mri head will be done in am. Will attempt to complete mri screening sheet when pt awake later today. Fall precaution in place. Will continue to monitor.
--- NOTE | 2021-03-11 16:17 | NUR ---
CT HEAD DONE EARLY THIS AM. PT HAVING EEG. PT IS MORE SOMULENT. CM FOLLOWING REGARDING DC PLANNING.
--- NOTE | 2021-03-12 02:45 | NUR ---
PT IS A/O TO PERSON, PLACE, AND SITUATION. AT THE START OF THE SHIFT PT WAS SLEEPING AND DID NOT RESPOND TO ANYTHING OTHER THAN PAINFUL STIMULI. WHEN PT WAS A WAKE SHE WAS PLEASANT AND COOPERATIVE. ANSWERED ALL QUESTIONS TO MRI QUESTIONAIRE. REQUESTED TO EAT. PT GIVEN A FULL LIQUID DIET AND WAS ABLE TO DRINK ALL THAT WAS PROVIDED. C/O ANXIETY AND FEELING NERVOUS. PRN ANXIETY MEDICATION GIVEN DIRECTED. BP AND HR ELEVATED. TRACKWALKER NOTIFIED. ORDERS GIVEN. HR LOWERED BUT IS STILL TACHY AT THIS TIME. FLUIDS INFUSING AT PRESCRIBED RATE. FALL PRECAUTIONS IN PLACE, CALL LIGHT IS WITHIN REACH.
[2021-03-12 05:46] VITALS: BP 152/72
[2021-03-12 06:37] LABS: ALBUMIN 2.2 g/dL (3.4-5.0); CREATININE 0.7 mg/dL (0.6-1.0); MAGNESIUM 1.8 mg/dL (1.8-2.4); PHOSPHORUS 3.4 mg/dL (2.5-4.9); POTASSIUM 3.6 mmol/L (3.5-5.1)
[2021-03-12 07:34] VITALS: BP 142/77
--- NOTE | 2021-03-12 14:43 | NUR ---
CARE TEAM INDICATING THAT PT IS PROGRESSING TOWARD GOAL OF RETURNING TO [facility]. CM FAXED CLINICAL UPDATES TO FACILITY THIS DAY. CM FOLLOWING REGARDING DC PLANNING.
--- NOTE | 2021-03-12 15:50 | NUR ---
ASSUMED PT CARE THIS AM. PT IS ALERT & ORIENTED X2 TO PERSON AND PLACE. PT HAS IV SITE ON RFA RUNNING D5 NS @80ML/HR. PT HAS TELE MONITOR ON. PT IS ON ROOM AIR. PT HAS HOLGUIN CATH IN PLACE. CALLED [facility] REGARDING MRI QUESTIONNAIRE. FAX SCREENING MRI THIS AFTERNOON. GIVEN IM OLANZAPINE THIS AFTERNOON. PT ON THE CHAIR WITH ALARM ON, CALL LIGHT WITHIN REACH. WILL CONTINUE TO MONITOR PT. FOLLOW POC.
[2021-03-12 20:30] VITALS: BP 152/93
[2021-03-13 00:24] VITALS: BP 152/83
[2021-03-13 04:33] VITALS: BP 127/65
--- NOTE | 2021-03-13 06:00 | NUR ---
Pt. has been alert and oriented times three this shift. She has been attempting to get up out of bed or recliner chair without asking for assistance and alarms sounded. She also c/o generalized pain with new order for po tramadol (see cpoe). Tramadol given with some relief noted (see emar).
[2021-03-13 07:14] VITALS: BP 152/93
[2021-03-13] MEDS ORDERED: CHLORPROMAZINE25 M1 PO (11:13)
[2021-03-13] MEDS ORDERED: BENZTROPINE MES1 MG PO (11:13)
[2021-03-13] MEDS ORDERED: DIVALPROEX SOD500 M1 PO (11:13)
[2021-03-13] MEDS ORDERED: BUSPIRONE HCL5 MG PO (11:13)
[2021-03-13 11:30] VITALS: BP 143/78
[2021-03-13 16:20] VITALS: BP 149/96
--- NOTE | 2021-03-13 16:48 | NUR ---
DC WAS ANTICIAPTED FOR PT HIS DAY BUT X RAY WAS DONE ON HER ANKLE AND IT WAS FOUND TO BE FRACTURED. ORTHO CONSULTED. SHABNAM REACHED OUT TO TAWANNA AT [facility] AT AND SHE WAS UPDATED. SHE INDICATED THAT SHOULD PT BE MEDICALLY STABLE OVER THE WEEKEND THEY WOULD BE ABLE TO ACCEPT HER BACK AND PICK HER UP. SHE INDICATED THAT IF PT IS MEDICALLY STABLE TO DISCHARGE BACK TO [facility] OVER THE WEEKEND CALL JHOANA AT TO FACILITATE DISCHARGE FAX TO .
--- NOTE | 2021-03-13 19:37 | NUR ---
Assumed pt care at 7am.Pt in and out of bed with assist. Assessment completed. vss. Pt c/o generalized bodyache.Tramadol given x2 this shift with relief. Dr Olguin and Maik here,order noted.Pt reported rt ankle pain. Xray done and it shows fracture. Dr Rolon consulted. Dc to [facility]. Pt in bed sleeping at present. Fall precaution in place. Report off to night rn.
[2021-03-13 21:05] VITALS: BP 151/86
[2021-03-14 00:25] VITALS: BP 146/79
[2021-03-14 05:25] VITALS: BP 155/80
--- NOTE | 2021-03-14 06:24 | NUR ---
Pt. rested quietly at intervals during the night when checked on during frequent rounds. She was given po pain meds for c/o pain all over (see emar) with some relief noted. UP to the bedside comode with one assist. She has been incontinent of urine. Bed alarm is on.
[2021-03-14 08:07] VITALS: BP 124/62
[2021-03-14 12:16] VITALS: BP 132/65
--- NOTE | 2021-03-14 16:44 | NUR ---
Assumed pt care at 7am.Pt in bed alert and oriented x3. Assessment completed. vss. Pt wanted to know when ortho doctor will be putting full cast on her rt ankle.Am meds given as ordered and well tolerated. Zyprexa im given for agitation.Pt left per wc to radiology for xray and returned after 20minutes. Tramadol given x2 this shift with partial relief. Fall precaution in place. Will continue to monitor.
[2021-03-14 17:27] VITALS: BP 138/55
[2021-03-14 20:22] VITALS: BP 152/93
[2021-03-15 00:49] VITALS: BP 159/97
[2021-03-15 04:00] VITALS: BP 109/62
--- NOTE | 2021-03-15 08:30 | NUR ---
patient was slepy most of the night. patient encouraged fluids and snacks. calm and cooperative with meds and care during assessment. patient was up at around 0530 patient wanted to start cutting with folk or soda can and started pushing staff so that she can get something to cut herself. security, roundhouse worker notified. im zyprexa given per dr. powers. corporate trust officer notified new order of behaviour tray and 1:1. patient up talking with staff. will continue monitoring for safety.
--- NOTE | 2021-03-15 19:46 | NUR ---
Assumed pt care at 7am.Pt in room on 1:1 suicidal watch. Assessment completed vss.Pt refused breakfast but took all meds except laxative.Dr Olguin here,order noted. Consult called to Dr Gonzales anderson order noted.Flexeril an tramadol given to pt per her request. Pt has been sleeping on and off most of the time today.Fall precaution in place. Report off to bogdan rn.
[2021-03-15 19:50] VITALS: BP 135/78
--- NOTE | 2021-03-16 03:24 | NUR ---
Assumed pt care at 1900. A/OX3 but able to make needs known. VSS. C/o pain to right foot,edema noted on foot;pt wearing a Cam boot when up medicated for pain per EMAR with relief reported. Continent of bladder,bowel sounds hypoactive. Pt has a sitter in room for SI watch,no SI voiced this shift will continue to monitor pt.
[2021-03-16] MEDS ORDERED: LACTULOSE20 GM/30 M PO (09:19)
[2021-03-16] MEDS ORDERED: CYCLOBENZAPRINE5 MG PO (09:19)
[2021-03-16] MEDS ORDERED: CEFUROXIME500 MG PO (09:19)
[2021-03-16] MEDS ORDERED: LOPRESSOR50 PO (09:19)
--- NOTE | 2021-03-16 14:18 | NUR ---
CARE TEAM INDICATED THAT PT IS MEDICALLY STABLE TO DC BACK TO [facility] THIS DAY. CM CALLED AND LEFT VM WITH DIRECTOR OF WOMEN'S UNIT CHILTON AND LEFT . CM CALLED DIRECTOR JHOANA AND HE IS AWARE AND AGREEABLE WITH PT'S RETURN THIS DAY. CM ATTEMPTED TO ORDER PT A WC FOR USE UPON DC. CM CALLED FOR PER AUTH THROUGH [place] MEDICAID AND THEY INDICATED THAT THEY CAN'T PROVIDE A WC FACILITY IS OBLIGATED TO DO SO AT NO COST TO PT. CM NOTIFIED JHOANA THEY WILL PROVIDE ONE. CM ARRANGED [facility] BETWEEN [phone]. CM NOTIFIED [facility] AND THE PA OFFICE. ORDERS FAXED. NURSE GIVEN NUMBER FOR REPORT. NO OTHER CM INTERVENTION INDICATED. CASE CLOSED.
--- NOTE | 2021-03-16 15:21 | NUR ---
PATIENT TO DISCHARGE TO FACILITY TODAY AROUND [phone]. PATIENT ALERT/ORIENTED AND CALM TODAY. SEEN BY THERAPY. PATIENT TO BE NWB ON RIGHT FOOT. CAM BOOT IN PLACE. REPORT CALLED TO FACILITY. WAITING FOR TRANSPORT AT THIS TIME.
--- NOTE | 2021-03-18 10:09 | HC ---
[facility] [address] CONSULTATION Name: KORTNEY WORRELL Room #: 463-P [facility] IN M.R.#: [id number] Admission: 03/01/21 Attend Phys: Rasta Bowden Sharif Discharge: 03/16/21 Date of : 63 Report #: [id number] THIS REPORT FOR: cc: Mason James MD, Dennis R MD Khosla, Parveen K. MD ~ DATE OF SERVICE: 03/11/2021 HISTORY OF PRESENT ILLNESS: A 55-year-old female patient who is unable to provide any history at all. There is a number for the legal guardian in the chart and I called that number and it looks like it is some legal guardian and they usually do not know any medical history. Therefore, the history is entirely from the records. The Emergency Room record indicates that the patient had presented to Emergency Room with blood in the stool. She apparently was not baseline for her neurological status. It is not clear what her baseline neurological status is because it is mentioned in the Emergency Room note that the patient has self-mutilation post-traumatic stress disorder, generalized anxiety, borderline personality, OCD, social phobias, bipolar, etc. It looks like she has a pretty significant psychiatric history. Notes have indicated that she has been followed by psychiatrist here and Dr. Gregory has checked the patient's Depakote level and it has been 47. The patient's white count is persistently high when she is here. UA is positive for wbcs from 6 to 15 and she also has blood on the urine which was tested on 03/09/2021. REVIEW OF SYSTEMS: A 14-point review of system was attempted and it is entirely from the record and the patient will not talk. The patient apparently has a history of hypertension, diabetes, iron deficiency anemia, GERD. This was her relevant 14-point review of system. One of the records indicate that she also has a vitamin D deficiency. PAST MEDICAL HISTORY: Unobtainable both from the record as well as from the patient, but apparently she has a pretty significant psychiatric disorder. FAMILY HISTORY: Unavailable. SOCIAL HISTORY: Is also unavailable. It looks like the patient lives in a longterm facility. PHYSICAL EXAMINATION: The examination was pretty limited. The patient basically was lying in the bed. Did not follow any commands. Rarely opened her eyes. There was no meningeal sign. Reflexes the best I can tell is diminished. I could not look at the fundus. She did not cooperate enough to do any neurological examination in this patient, although that was attempted like cerebellar sign, sensation, etc. She is morbidly obese. She does not appear to be in any prominent respiratory distress. Cardiac examination appeared unremarkable. There is no edema, cyanosis or jaundice. Lab indicates [address] [address] CONSULTATION Name: KORTNEY WORRELL Room #: 463-P [facility] IN M.R.#: [id number] Admission: 03/01/21 Attend Phys: Rasta Olguin Discharge: 03/16/21 Date of : 63 Report #: [id number] persistently high white count. The blood pressure is 128/85, respiration is in upper 20s or 30s, pulse is 119, temperature is 97.9. IMAGING STUDIES: She did have a CT scan of the head that was reviewed and demonstrates atrophy which is unexpected at the patient's age of 55. MEDICATIONS: Medications were reviewed and the patient had some lorazepam on 03/09/2021. She gets some lactulose. She is on Depakote, but her level is stable and in fact on the lower side of therapeutic levels. IMPRESSION: Pretty difficult to form in this patient. A CT scan does show atrophy. She does appear to have UTI. Therefore, it is possible that part of it is encephalopathy. She also has pretty significant psychiatric issues and part of it may be psychiatric. Some further workup is indicated in this patient. I think it is desirable to do the EEG, which is already being done. If we can find somebody who can fill up the questionnaire for MRI, then I think it will be desirable to do an MRI and I will order that in case we can find somebody to fill up the questionnaire. I will discuss the patient with the hospitalist. Thank you very much for allowing me to share in the management of this patient. <ELECTRONICALLY SIGNED> By: Tremaine Pleitez MD 03/18/21 [id number] [id number] Tremaine Pleitez MD /nt
--- NOTE | 2021-03-18 10:09 | EEG ---
[facility] [place] [address] ELECTROENCEPHALOGRAM Name: KORTNEY WORRELL Room #: 463-P [facility] IN M.R.#: [id number] Admission: 03/01/21 Attend Phys: Rasta Bowden Tj Discharge: 03/16/21 Date of : 63 Report #: [id number] THIS REPORT FOR: //name// DATE OF SERVICE: 03/11/2021 This patient is being evaluated for altered mental status. EEG was done by placing the electrode by standard 10-20 system of electrode placement. Both referential and sequential montages were used for recording. Background activity in this patient's EEG is about 7 Hz and 20 microvolt. Photic stimulation is unremarkable. The patient became drowsy and that is associated with bilateral slowing and vertex sharp waves. Throughout the record, no active epileptiform activity was noticed. IMPRESSION: This patient's EEG is intermixed with theta range slowing on both sides. That is a nonspecific finding which can occur with encephalopathy, effect of psychotropic medication, dementia, etc. No epileptiform activity was noticed during this record. Thank you very much for this referral. <ELECTRONICALLY SIGNED> By: Tremaine Pleitez MD 03/18/21 [id number] [id number] Tremaine Pleitez MD /nt
== END 2021-03-16 16:10 | DRG 871 ==
LOC: ER 17:29 → EROBS 19:16 → ICU 19:16 → 4S 20:55 → ICU 03-02 04:32 → 4W 03-09 11:06
PROVIDERS: Emergency Medicine; Nurse Practitioner; Nurse Practitioner Family; Psychiatry & Neurology Neuromuscular Medicine; Psychiatry & Neurology Psychiatry; ADMIT Internal Medicine; ATTEND Hospitalist
DX: A41.9 Sepsis, unspecified organism (principal); G92.8 Other toxic encephalopathy; K92.2 Gastrointestinal hemorrhage, unspecified; N39.0 Urinary tract infection, site not specified; N17.9 Acute kidney failure, unspecified; K56.7 Ileus, unspecified; K52.9 Noninfective gastroenteritis and colitis, unspecified; E86.0 Dehydration; F31.9 Bipolar disorder, unspecified; F41.1 Generalized anxiety disorder; E11.9 Type 2 diabetes mellitus without complications; I10 Essential (primary) hypertension; F17.210 Nicotine dependence, cigarettes, uncomplicated; D50.9 Iron deficiency anemia, unspecified; K21.9 Gastro-esophageal reflux disease without esophagitis; F25.9 Schizoaffective disorder, unspecified; F43.10 Post-traumatic stress disorder, unspecified; F60.3 Borderline personality disorder; D64.9 Anemia, unspecified; Z20.822 Contact with and (suspected) exposure to COVID-19; Z88.0 Allergy status to penicillin
CPT/HCPCS: 10045; 10078; 10100; 10102; 10203; 50455